=== PATIENT | male | born 1985 | race American Indian/Alaskan Native ===

== ENCOUNTER 2017-03-23 11:46 | Emergency (ER) | payer BC ==
[2017-03-23 13:03] LABS: BASO # 0.1 K/uL (0.0-0.2); BASO % 1.1 % (0.0-2.0); EOS # 0.3 K/uL (0.0-0.7); EOS % 4.5 % (0.0-4.0); HEMOGLOBIN 15.2 g/dL (12.0-18.0); LYMPH # 1.8 K/uL (1.0-4.3); LYMPH % 23.2 % (20.0-40.0); MEAN CELL VOLUME 81.7 fL (80.0-94.0); MEAN CORPUSCULAR HEMOGLOBIN 26.3 pg (27.0-31.0); MEAN CORPUSCULAR HGB CONC 32.2 g/dL (33.0-37.0); MEAN PLATELET VOLUME 8.1 fL (7.2-11.7); MONO # 0.5 K/uL (0.0-0.8); MONO % 6.6 % (0.0-10.0); NEUT # 4.9 K/uL (1.8-7.0); NEUT % 64.6 % (50.0-75.0); RBC 5.79 Mil/uL (4.40-5.90); RED CELL DISTRIBUTION WIDTH 15.7 % (11.5-14.5); WHITE BLOOD COUNT 7.6 K/uL (4.8-10.8)
[2017-03-23 13:11] LABS: ALBUMIN 4.4 g/dL (3.5-5.0)
[2017-03-23 13:14] LABS: ALB/GLOB RATIO 1.2 (1.0-2.1); ALT/SGPT 38 U/L (21-72); AST/SGOT 26 U/L (17-59); BLOOD UREA NITROGEN 9 mg/dL (9-20); GFR AFRICAN-AMERICAN > 60; GFR NON-AFRICAN AMERICAN > 60
[2017-03-23 13:15] LABS: CALCIUM 9.6 mg/dl (8.6-10.4)
[2017-03-23 13:23] LABS: CK-MB 1.82 ng/mL (0.0-3.38)
--- NOTE | 2017-03-23 13:37 | C.PDOC ---
History Of Present Illness 32 year old male presents to the ED with complaints of non-productive cough and pleuritic pain for three days. Patient states he ran out of his metformin and exforge two weeks ago. He admits he has not followed up with his PMD. Patient denies SOB, palpitations, fever, nausea/vomiting, diarrhea. Time Seen by Provider: 03/23/17 12:04 Chief Complaint (Nursing): Chest Pain History Per: Patient History/Exam Limitations: no limitations Onset/Duration Of Symptoms: Days (3 days) Current Symptoms Are (Timing): Still Present Severity: Mild Quality: "Pain" Associated Symptoms: denies: Nausea, Dyspnea, Diaphoresis, Syncope Recent travel outside of the [place]: No Past Medical History Reviewed: Historical Data, Nursing Documentation, Vital Signs Vital Signs: Last Vital Signs Temp 98.8 F 03/23/17 15:18 Pulse 84 03/23/17 15:18 Resp 20 03/23/17 15:18 BP 156/90 H 03/23/17 15:18 Pulse Ox 98 03/23/17 15:18 - Medical History PMH: HTN Family History: States: No Known Family Hx - Social History Hx Alcohol Use: Yes Hx Substance Use: No - Immunization History Hx Tetanus Toxoid Vaccination: No Hx Influenza Vaccination: No Hx Pneumococcal Vaccination: No Review Of Systems Except As Marked, All Systems Reviewed And Found Negative. Constitutional: Negative for: Fever, Chills Cardiovascular: Negative for: Palpitations Respiratory: Positive for: Cough (non-productive cough ), Pleuritic Pain Gastrointestinal: Negative for: Nausea, Vomiting, Abdominal Pain, Diarrhea Neurological: Negative for: Weakness, Numbness Physical Exam - Physical Exam Appears: Well, Non-toxic, No Acute Distress, Other ( obese) Skin: Warm, Dry Head: Atraumatic, Normacephalic Eye(s): bilateral: Normal Inspection Oral Mucosa: Moist Cardiovascular: Rhythm Regular Respiratory: Normal Breath Sounds, No Rales, No Rhonchi, No Wheezing Gastrointestinal/Abdominal: Normal Exam, Bowel Sounds, Soft, No Tenderness Extremity: Normal ROM, No Tenderness, No Pedal Edema, No Calf Tenderness, No Swelling Extremity: Bilateral: Atraumatic, Normal Color And Temperature, Normal ROM Pulses: Left Dorsalis Pedis: Normal, Right Dorsalis Pedis: Normal Neurological/Psych: Oriented x3, Normal Speech, Normal Cognition, Normal Cranial Nerves, No Cerebellar Signs, Normal Motor, Normal Sensation, Normal Reflexes Gait: Steady ED Course And Treatment - Laboratory Results Result Diagrams: 03/23/17 12:58 03/23/17 12:58 ECG: Interpreted By Me, Viewed By Me ECG Rhythm: Sinus Rhythm (85 bpm) ECG Interpretation: Normal Interpretation Of ECG: Normal axis, T-wave inversions in V4-V6. O2 Sat by Pulse Oximetry: 96 (room air ) Pulse Ox Interpretation: Normal - Radiology CXR: Interpreted by Me, Viewed By Me CXR Interpretation: Yes: No Acute Disease. No: Infiltrates Progress Note: Blood work, EKG, and CXR ordered and reviewed. Accucheck - 139. Patient given PO Norvasc and Cozaar. Reevaluation Time: 15:05 Reassessment Condition: Improved (On reassessment, patient is resting comfortably, states he feels better. Patient given Rxs for Azithromycin, Tessalon, and refills of his chronic medications. He was instructed to follow up with his PMD without fail in 1-2 days, and he understands he should return to ED if symptoms worsen.) Disposition Counseled Patient/Family Regarding: Studies Performed, Diagnosis, Need For Followup, Rx Given - Disposition Referrals: Vicki Lema MD [Family Provider] - Disposition: HOME/ ROUTINE Disposition Time: 15:05 Condition: STABLE Additional Instructions: FOLLOW UP WITH YOUR DOCTOR IN 1-2 DAYS USE MEDICATIONS DIRECTED RETURN TO ER IF SYMPTOMS WORSEN Prescriptions: Amlodipine/Valsartan [Exforge 10-320 mg Tablet] 1 each PO DAILY #30 tablet Azithromycin [Zithromax] 250 mg PO DAILY #4 tab Benzonatate [Tessalon Perles] 100 mg PO BID PRN #15 sgl PRN Reason: Cough MetFORMIN [glucoPHAGE] 1,000 mg PO BID #60 tab Instructions: Diabetes Mellitus Type 2 in Adults (ED), Acute Bronchitis (ED), Hypertension (ED) Print Language: TAMAZIGHT - POA Present On Arrival: None - Clinical Impression Clinical Impression: Bronchitis, Hypertension, Medication refill - Scribe Statement The provider has reviewed the documentation as recorded by the Scribe Melina Virgen All medical record entries made by the Scribe were at my direction and personally dictated by me. I have reviewed the chart and agree that the record accurately reflects my personal performance of the history, physical exam, medical decision making, and the department course for this patient. I have also personally directed, reviewed, and agree with the discharge instructions and disposition.
--- NOTE | 2017-03-23 13:38 | RAD ---
PROCEDURE: CHEST RADIOGRAPH, 1 VIEW HISTORY: COUGH, HYPERGLYCEMIA COMPARISON: None available. FINDINGS: LUNGS: Mild venous congestion. PLEURA: No pneumothorax or pleural fluid seen. CARDIOVASCULAR: Normal. OSSEOUS STRUCTURES: No significant abnormalities. VISUALIZED UPPER ABDOMEN: Normal. OTHER FINDINGS: None. IMPRESSION: Mild venous congestion.
[2017-03-23 14:37] LABS: CK-MB 1.69 ng/mL (0.0-3.38)
[2017-03-23 15:19] VITALS: BP 156/90; PULSE 84; RESP 20; TEMP 98.8
--- NOTE | 2017-03-26 11:46 | CARD ---
APPROVED REPORT EKG Measurement Heart [id number] ID [id number] <Conclusion> Normal sinus rhythm Nonspecific T wave abnormality Abnormal ECG
[2017-04-01 13:52] VITALS: O2SAT 96
== END 2017-03-23 15:19 | disposition home or self-care (01) ==
LOC: C.ER 11:46
DX: J40 Bronchitis, not specified as acute or chronic (principal); I10 Essential (primary) hypertension; Z76.0 Encounter for issue of repeat prescription

== ENCOUNTER 2017-12-31 17:05 | Emergency (ER) | payer BC, MEDICAID, OTHER ==
--- NOTE | 2017-12-31 18:46 | C.PDOC ---
Time Seen by Provider: 12/31/17 17:45 Chief Complaint (Nursing): Upper Extremity Problem/Injury Past Medical History Vital Signs: Last Vital Signs Temp 98.3 F 12/31/17 17:13 Pulse 96 H 12/31/17 17:13 Resp 18 12/31/17 17:13 BP 189/115 H 12/31/17 17:13 Pulse Ox 97 12/31/17 17:13 - Medical History PMH: HTN Family History: States: Unknown Family Hx - Social History Hx Alcohol Use: No Hx Substance Use: No - Immunization History Hx Tetanus Toxoid Vaccination: No Hx Influenza Vaccination: No Hx Pneumococcal Vaccination: No ED Course And Treatment O2 Sat by Pulse Oximetry: 97 Disposition - Disposition
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
[2017-12-31 23:00] VITALS: BP 176/74; PULSE 74; RESP 22; TEMP 98.1; O2SAT 94
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
== END 2017-12-31 22:51 | disposition home or self-care (01) ==
LOC: C.ER 17:05
DX: M54.12 Radiculopathy, cervical region (principal); R20.2 Paresthesia of skin